=== PATIENT | female | born 1970 | race Caucasian/White ===

== ENCOUNTER 2016-06-09 11:00 | Emergency (ER) | payer MEDICAID ==
[~2016-06-09] VITALS: Ht 157.5 cm; Wt 72.6 kg
[2016-06-09 11:04] VITALS: BP 143/123
[2016-06-09] MEDS ORDERED: fentaNYL 0.05 MG/ML VIAL IVP ONE (11:15)
[2016-06-09] MEDS ORDERED: NACL 0.9% 1,000 ML IV ONE (11:15)
[2016-06-09] MEDS ORDERED: ONDANSETRON 4 MG/2 ML VIAL IVP ONE (11:15)
--- NOTE | 2016-06-09 11:17 | NUR ---
PT. PRESENTS TO THE ED C/O OF RUQ ABD PAIN X 2 WEEKS AND NV SINCE YESTERDAY, NO VISIBLE SIGNS OF DISTRESS NOTED, BREATHING EVEN AND UNLABORED, AAOX4, VSS, BOWEL SOUNDS ACTIVE IN 4 QUADRANTS, PT. STATES SHE WAS SEEN AT [facility] 2 DAYS AGO AND DIAGNOSED WITH GALL STONES
[2016-06-09 12:24] VITALS: BP 103/68
--- NOTE | 2016-06-09 12:24 | NUR ---
Patient discharged with v/s stable. Written and verbal after care instructions given and explained. Patient alert, oriented and verbalized understanding of instructions. Ambulatory with steady gait. All questions addressed prior to discharge. ID band removed. Patient advised to follow up with PMD. Rx of BENTYL AND MYLANTA given. Patient educated on indication of medication including possible reaction and side effects. Opportunity to ask questions provided and answered.
== END 2016-06-09 12:24 | disposition home or self-care (01) ==
LOC: MED 11:00
DX: K80.70 Calculus of gallbladder and bile duct without cholecystitis without obstruction (principal); R03.0 Elevated blood-pressure reading, without diagnosis of hypertension; J45.909 Unspecified asthma, uncomplicated
CPT/HCPCS: 36415; 80053; 81002; 81025; 83690; 84703; 85025; 96361; 96374; 96375; 99284; J2405; J3010; J7030